=== PATIENT | female | born 1995 | race Caucasian/White ===

== ENCOUNTER 2020-05-30 14:48 | Emergency (ER) | payer MEDICAID ==
[~2020-05-30] VITALS: Ht 160 cm; Wt 52.3 kg
[2020-05-30 15:33] VITALS: Ht 160 cm; Wt 52.3 kg
[2020-05-30] MEDS ORDERED: PHENERGAN25 M1 (15:34)
[2020-05-30 16:00] LABS: HEMOGLOBIN 11.8 g/dL (12-16); LYMPHOCYTES 23.4 % (15-50); MCH 26.8 pg (26.0-34.0); MCHC 32.8 g/dL (31.0-37.0); MCV 81.8 fL (80.0-100.0); MEAN PLATELET VOLUME 8.4 fL (7.4-10.4); NEUTROPHILS 71.1 % (40-80); PLATELET COUNT 332 10x3/uL (130-400); WBC 10.8 10x3/uL (4.8-10.8)
[2020-05-30 16:24] LABS: CALC OSMOLALITY 270 mosm/kg (275-300); CALCIUM 8.7 mg/dL (8.5-10.1); CARBON DIOXIDE 26.4 mmol/L (21.0-32.0); CHLORIDE - SERUM 103 mmol/L (98-107); CREATININE - SERUM 0.8 mg/dL (0.6-1.3); GLUCOSE 86 mg/dL (74-106); POTASSIUM - SERUM 3.7 mmol/L (3.5-5.1); SODIUM 137 mmol/L (136-145); UREA NITROGEN 7 mg/dL (7-18); eGFR NON AFRICAN AMERICAN > 90 mL/min (90-120)
[2020-05-30 16:48] LABS: BILIRUBIN NEGATIVE (NEGATIVE); GLUCOSE NEGATIVE (NEGATIVE); KETONE NEGATIVE (NEGATIVE); NITRITE NEGATIVE (NEGATIVE); SPECIFIC GRAVITY 1.005 (1.005-1.020); UROBILINOGEN NORMAL (NORMAL)
[2020-05-30 16:51] LABS: ALBUMIN 3.7 g/dL (3.4-5.0); ALKALINE PHOSPHATASE 79 U/L (30-120); ALT (SGPT) 24 U/L (10-68); HCG - QUANTITATIVE (MATERNAL) 75429 mIU/mL
[2020-05-30 16:53] LABS: BACTERIA FEW /hpf (NEGATIVE); EPITHELIAL CELLS 0-5 /hpf (0-5); RED CELLS - URINE 25-50 /hpf (0-5); WHITE CELLS - URINE 0-5 /hpf (NEGATIVE)
[2020-05-30 16:54] LABS: AMORPHOUS SEDIMENT <1+ /lpf (NONE SEEN)
[2020-05-30 20:40] VITALS: BP 117/76
== END 2020-05-30 20:41 | disposition home or self-care (01) ==
LOC: D.ER 14:48
PROVIDERS: Family Medicine
DX: O26.891 Other specified pregnancy related conditions, first trimester (principal); Z3A.08 8 weeks gestation of pregnancy; N93.9 Abnormal uterine and vaginal bleeding, unspecified; R10.30 Lower abdominal pain, unspecified